=== PATIENT | female | born 1970 | race Caucasian/White ===

== ENCOUNTER 2023-01-25 06:00 | Outpatient (RCR) | payer BC, SELFPAY | END 2023-02-23 23:59 | disposition home or self-care (01) | LOC: TPT 06:00 | PROVIDERS: Visit Provider Physician Assistant | DX: Z98.890 Other specified postprocedural states (principal) | CPT/HCPCS: 97110; 97140; 97161 ==

== ENCOUNTER 2023-02-24 06:00 | Outpatient (RCR) | payer BC, SELFPAY | END 2023-03-26 23:59 | disposition home or self-care (01) | LOC: TPT 06:00 | PROVIDERS: Visit Provider Physician Assistant | DX: Z98.890 Other specified postprocedural states (principal) | CPT/HCPCS: 97110; 97140 ==

== ENCOUNTER 2024-03-11 13:12 | Emergency (ER) | payer BC, SELFPAY ==
--- NOTE | 2024-03-11 13:12 | ECG_ITS ---
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 Measurements Intervals [place] Rate: 85 P: 22 MI: 158 QRS: 10 QRSD: 97 T: 1 QT: 349 QTc: 416 Interpretive Statements SINUS RHYTHM Nonspecific diffuse T wave changes No previous ECG available for comparison Electronically Signed On 03-11-2024 21:32:04 CDT by Los Walsh M.D. [id number]
--- NOTE | 2024-03-11 13:14 | XRR_ITS ---
PROCEDURE INFORMATION: Exam: XR Chest Exam date and time: 03/11/2024 1:43 PM Age: 53 years old Clinical indication: Pain; Angina pectoris; Additional info: Cp TECHNIQUE: Imaging protocol: Radiologic exam of the chest. Views: 1 view. COMPARISON: CR XR chest 2V* [id number] 04/27/2017 10:31 AM FINDINGS: Lungs: Unremarkable. No consolidation. Pleural spaces: Unremarkable. No pleural effusion. No pneumothorax. Heart/Mediastinum: Unremarkable. No cardiomegaly. Bones/joints: Unremarkable. Soft tissues: Surgical material in the right humeral head. Otherwise, unremarkable. XR/XR chest 1V portable [id number] IMPRESSION: No acute disease.
[2024-03-11 13:19] VITALS: BP 139/71; PULSE 86; RESP 18; TEMP 36.8; O2SAT 97; BMI 34.3
--- NOTE | 2024-03-11 13:53 | ED_ITS ---
HPI - Chest Pain 2 General: Chief Complaint: Chest Pain Stated Complaint: CP Time Seen by Provider: 03/11/24 13:40 Source: patient Mode of arrival: ambulatory History of Present Illness: 53-year-old female presents emergency ro om with sudden onset of chest comfort radiating to her back and her shoulders began suddenly while she was at rest no known cardiac history no associated shortness of breath is passed for the most part now. She has not previously had any cardiac evaluation she does smoke she is not diabetic. No history of hypertension. MD complaint: chest pain Timing of current episode: episodic Pain location: left chest Pain radiation: back Quality: heaviness Relieving factors: nothing Exacerbating factors: nothing Associated symptoms: Deny abdominal pain, diaphoresis, dyspnea, fever(s), leg edema, nausea, palpitations, sense of impending doom, syncope or vomiting Treatment prior to arrival: none Review of Systems 2 Const: Denies: fever(s), chills or diaphoresis Card: Denies: chest pain, palpitations or syncope Resp: Denies: dyspnea GI: Denies: abdominal pain, nausea or vomiting : Denies: dysuria, urinary frequency or urinary urgency Musc: Denies: neck pain or back pain Skin/Breast: Denies: rash Physical Exam 2 Const: COMMON NORMALS: no acute distress GENERAL APPEARANCE: cooperative and comfortable ORIENTATION/CONSCIOUSNESS: Yes awake, Yes oriented to person, Yes oriented to place and Yes oriented to time HENMT: COMMON NORMALS: normocephalic, atraumatic and hearing grossly normal bilaterally HEAD & SCALP: normocephalic and atraumatic Resp: COMMON NORMALS: normal respiratory effort, No retractions, No use of accessory muscles and clear to auscultation bilaterally AUSCULTATION: clear to auscultation bilaterally Cardio: COMMON NORMALS: regular rate, regular rhythm and No murmurs present (Cardio) RATE: regular rate RHYTHM: regular rhythm GI: COMMON NORMALS: Soft to palpation and No hepatosplenomegaly present A USCULTATION: Yes normoactive bowel sounds PALPATION: Yes Soft to palpation, No Tenderness to palpation present (GI), No Guarding due to palpation present (GI) and Yes No hepatosplenomegaly present Extremity: COMMON NORMALS: normal to inspection, capillary refill normal, no clubbing, cyanosis or edema, no calf tenderness and no pedal edema Neuro: SENSORIUM/ORIENTATION: Yes oriented to person, Yes oriented to place and Yes oriented to time Skin: COMMON NORMALS: no rashes or lesions noted GENERAL SKIN EXAM: no rashes or lesions noted Course 2 Vital Signs: Vital signs: Vital Signs Temperature 98.2 F 03/11/24 13:19 Pulse Rate 83 03/11/24 16:35 Respiratory Rate 18 03/11/24 13:19 Blood Pressure 163/105 03/11/24 16:00 Pulse Oximetry 97 03/11/24 16:35 Oxygen Delivery Me thod Room Air 03/11/24 16:00 MDM - Chest Pain Medical Decision Making Cardiac enzymes negative EKG does not show any acute changes discharge patient home set up for outpatient stress test additionally started on baby aspirin daily isosorbide mononitrate which will improve her blood pressure as well as be cardioprotective avoid exertional activities and return if she has further problems. Medical Records I reviewed the patient's medical records. Lab Data I reviewed the patient's lab results. 03/11/24 13:49 03/11/24 13:49 Radiology Impressions Chest X-Ray 03/11/24 13:14 IMPRESSION: No acute disease. Laboratory Results WBC 6.40 10^3/uL (3.29-11.43) 03/11/24 13:49 RBC 5.09 10^6/uL (3.85-5.65) 03/11/24 13:49 Hgb 14.20 g/dL (11.27-16.99) 03/11/24 13:49 Hct 45.0 % (36-47) 03/11/24 13:49 MCV 88.4 fl (85-98) 03/11/24 13:49 MCH 27.9 pg (27-33) 03/11/24 13:49 MCHC 31.6 g/dL (30-55) 03/11/24 13:49 RDW 13.1 % (12.1-15.1) 03/11/24 13:49 Plt Count 230 10^3/cmm (157-399) 03/11/24 13:49 MPV 10.5 fL (7.4-10.4) H 03/11/24 13:49 Neut % (Auto) 56.2 % 03/11/24 13:49 Lymph % (Auto) 32.7 % 03/11/24 13:49 [place] % (Auto) 7.0 % 03/11/24 13:49 Eos % (Auto) 3.4 % 03/11/24 13:49 Baso % (Auto) 0.5 % 03/11/24 13:49 Neut # (Auto) 3.60 10^3/uL (1.8-7.7) 03/11/24 13:49 Lymph # (Auto) 2.1 10^3/uL (0.8-4.8) 03/11/24 13:49 [place] # (Auto) 0.5 10^3/uL (0.2-0.9) 03/11/24 13:49 Eos # (Auto) 0.2 10^3/uL (0.0-0.8) 03/11/24 13:49 Baso # (Auto) 0.0 10^3/uL (0.0-0.1) 03/11/24 13:49 Nucleated RBC % (auto) 0 % 03/11/24 13:49 Nucleated RBCs # 0.0 /100WBC 03/11/24 13:49 Sodium 138 mmol/L (136-145) 03/11/24 13:49 Potassium 3.5 mmol/L (3.5-5.1) 03/11/24 13:49 Chloride 102 mmol/L (98-107) 03/11/24 13:49 Carbon Dioxide 23 mmol/L (22-29) 03/11/24 13:49 Anion Gap 16.5 (5-19) 03/11/24 13:49 BUN 11 mg/dL (6-20) 03/11/24 13:49 Creatinine 0.5 mg/dL (0.5-0.9) 03/11/24 13:49 GFR Calculation 130.1 mL/min (90-130) H 03/11/24 13:49 Glucose 112 mg/dL (65-115) 03/11/24 13:49 Calculated Osmolality 286 mOsm/kg (285-295) 03/11/24 13:49 Calcium 9.1 mg/dL (8.5-10.5) 03/11/24 13:49 Total Bilirubin 0.6 mg/dL (0.15-1.2) 03/11/24 13:49 AST 14 U/L (0-32) 03/11/24 13:49 ALT 16 U/L (0-33) 03/11/24 13:49 Alkaline Phosphatase 94 U/L (35-105) 03/11/24 13:49 Troponin T Baseline < 6 ng/L (0-10) 03/11/24 13:49 Troponin T 120 Minute 6.00 ng/L (0-10) 03/11/24 15:34 Delta Troponin T 0.70461 ABS# (0-10) 03/11/24 15:34 Total Protein 7.1 g/dL (6.6-8.7) 03/11/24 13:49 Albumin 4.2 g/dL (3.5-5.2) 03/11/24 13:49 Globulin 2.9 g/dL (1.3-4.6) 03/11/24 13:49 All radiology interpretation(s) finalized by discharge Discharge Plan Discharge Patient Disposition: Home Clinical Impression: Atypical chest pain Condition: Stable Prescriptions: New aspirin 81 mg tablet,delayed release (DR/EC) 81 mg PO DAILY Qty: 30 0RF isosorbide mononitrate 30 mg tablet extended release 24 hr 30 mg PO DAILY Qty: 30 0RF No Action citalopram 20 mg tablet 20 mg PO DAILY diazepam 5 mg tablet 5 mg PO DAILY PRN (Reason: Panic Attack(S)) Discharge Orders: Discharge ED (Routine); Ordered 03/11/24 Ordered By: Dhiraj Light Discharge Diet: Usual diet Discharge Activity: Limit activity as instructed Patient Instructions: Opioid Safety, Pain Management Activity Restrictions/Additional Instructions: Thank you for choosing [facility] for your healthcare needs today. It is very important that you follow up as instructed or that you return to the Emergency Department should you have concerns or if your condition changes or worsens in any way. You were seen today with complaint of chest pain. Your cardiac enzymes and EKG were normal and did not show any acute coronary syndrome. You should have further evaluation of your heart with an outpatient stress test which case management will schedule. Recommend taking baby aspirin daily as well as isosorbide mononitrate 30 mg daily. 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
[2024-03-11 13:54] LABS: Basophils % 0.5 %; Eosinophils # 0.2 10^3/uL (0.0-0.8); Eosinophils % 3.4 %; Lymphocytes # 2.1 10^3/uL (0.8-4.8); Lymphocytes % 32.7 %; Mean Corpuscular HGB Conc 31.6 g/dL (30-55); Mean Corpuscular Hemoglobin 27.9 pg (27-33); Mean Corpuscular Volume 88.4 fl (85-98); Mean Platelet Volume 10.5 fL (7.4-10.4); Monocytes # 0.5 10^3/uL (0.2-0.9); Neutrophils % 56.2 %; Nucleated Red Blood Cells % 0 %; Platelet Count 230 10^3/cmm (157-399); Red Blood Count 5.09 10^6/uL (3.85-5.65); Red Cell Distribution Width 13.1 % (12.1-15.1)
--- NOTE | 2024-03-11 13:54 | PC.NURSE ---
PT REFUSED IV. NOTIFIED.
[2024-03-11 14:16] LABS: Alanine Aminotransferase 16 U/L (0-33); Albumin Level 4.2 g/dL (3.5-5.2); Alkaline Phosphatase 94 U/L (35-105); Anion Gap 16.5 (5-19); Aspartate Amino Transferase 14 U/L (0-32); Blood Urea Nitrogen 11 mg/dL (6-20); Calcium 9.1 mg/dL (8.5-10.5); Carbon Dioxide 23 mmol/L (22-29); Chloride 102 mmol/L (98-107); Creatinine Clr Calc Pharmacy 145.2211; Globulin 2.9 g/dL (1.3-4.6); Glomerular Filtration Rate 130.1 mL/min (90-130); Glucose 112 mg/dL (65-115); Osmolality Calculated 286 mOsm/kg (285-295); Potassium 3.5 mmol/L (3.5-5.1); Sodium 138 mmol/L (136-145); Total Bilirubin 0.6 mg/dL (0.15-1.2); Total Protein 7.1 g/dL (6.6-8.7)
[2024-03-11 14:18] LABS: Troponin(5th) Baseline < 6 ng/L (0-10)
[2024-03-11 15:00] VITALS: BP 153/80; PULSE 78; O2SAT 98
--- NOTE | 2024-03-11 15:14 | ECG_ITS ---
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 Measurements Intervals [place] Rate: 78 P: 11 CO: 180 QRS: 4 QRSD: 97 T: 2 QT: 360 QTc: 410 Interpretive Statements SINUS RHYTHM WITH OCCASIONAL VENTRICULAR PREMATURE COMPLEXES Compared to ECG 03/11/2024 13:12:13 Ventricular premature complex(es) now present Electronically Signed On 03-11-2024 21:39:23 CDT by Los Walsh M.D. [id number]
[2024-03-11 15:57] LABS: Troponin 5 2HR Delta 0.00001 ABS# (0-10)
[2024-03-11 16:00] VITALS: BP 163/105; PULSE 75; O2SAT 99
[2024-03-11 16:35] VITALS: PULSE 83; O2SAT 97
== END 2024-03-11 16:36 | disposition home or self-care (01) ==
PROVIDERS: Emergency Medicine; Emergency Provider Family Medicine
DX: R07.89 Other chest pain (principal)
CPT/HCPCS: 36415; 71045; 80053; 84484; 85025; 93005; 99285

== ENCOUNTER 2024-08-07 11:45 | Outpatient (CLI) | payer BC, SELFPAY ==
--- NOTE | 2024-08-07 11:40 | MM_ITS ---
WS: [id number] BILATERAL SCREENING DIGITAL TOMOSYNTHESIS MAMMOGRAM WITH CAD HISTORY: SCREENING COMPARISON: 11/16/2021 Bilateral CC and MLO views with tomosynthesis and synthetic mammography submitted. Computer aided det ection analyzed. Breast composition: The breasts are almost entirely fatty. No suspicious masses, microcalcifications or architectural distortion. MM/MM scr BI tomosynthesis [id number] IMPRESSION: BI-RADS: 1 - Negative. FOLLOW UP: 1 Year Follow-up
== END 2024-08-07 11:46 | disposition home or self-care (01) ==
LOC: MOBLMAM 11:46
PROVIDERS: PCP Nurse Practitioner Family; Visit Provider Nurse Practitioner Family
DX: Z12.31 Encounter for screening mammogram for malignant neoplasm of breast (principal); R92.313 Mammographic fatty tissue density, bilateral breasts
CPT/HCPCS: 77063; 77067